=== PATIENT | male | born 1945 | race Caucasian/White ===

== ENCOUNTER 2022-05-22 05:24 | Emergency (ER) | payer OTHER ==
[~2022-05-22] VITALS: Ht 182.9 cm; Wt 69.8 kg
[~2022-05-22 05:24] MED LIST: ATEN50 PO; CALCAVITD PO; IBUP800 PO; LISI20 PO; LORA10ER PO
[2022-05-22 05:50] LABS: BASOPHILS ABSOLUTE AUTO 0.04 K/mm3 (0.00-0.23); BASOPHILS PERCENT AUTO 0 % (0-2); EOSINOPHILS PERCENT AUTO 1 % (0-6); Hematocrit 41.8 % (37.0-53.0); Hemoglobin 13.8 g/dL (13.5-17.5); IMMATURE GRAN ABSOLUTE AUTO 0.04 K/mm3 (0.00-0.10); IMMATURE GRAN PERCENT AUTO 0 % (0-1); LYMPHOCYTES ABSOLUTE AUTO 1.71 K/mm3 (0.84-5.20); LYMPHOCYTES PERCENT AUTO 18 % (21-46); MONOCYTES ABSOLUTE AUTO 1.52 K/mm3 (0.16-1.47); MONOCYTES PERCENT AUTO 16 % (4-13); Mean Corpuscular HGB 29.6 pg (26.0-34.0); Mean Corpuscular Volume 90 fL (80-100); Mean Platelet Volume 9.5 fL (9.1-12.4); NEUTROPHILS ABSOLUTE AUTO 6.09 K/mm3 (1.96-9.15); NEUTROPHILS PERCENT AUTO 64 % (41-73); Platelet Count 280 K/mm3 (150-400); RDW Coefficient Variation 12.9 % (11.7-14.2); RDW Standard Deviation 42.5 fL (35.1-46.3); Red Blood Cell Count 4.67 M/mm3 (4.30-5.90)
[2022-05-22 06:14] LABS: Albumin/Globulin Ratio 0.8 (0.8-1.8); Bilirubin, Total 0.6 mg/dL (0.1-1.0); Creatinine, Blood 0.62 mg/dL (0.60-1.20); Potassium, Blood 3.3 mmol/L (3.5-5.5)
[2022-05-22 06:37] LABS: Influenza A, PCR NEGATIVE (NEGATIVE); Influenza B, PCR NEGATIVE (NEGATIVE); Resp Syncytial Virus, PCR NEGATIVE (NEGATIVE); SARS-Cov-2 (COVID-19) PCR, MMC NEGATIVE (NEGATIVE)
[2022-05-22] MEDS ORDERED: PRED20 PO (09:28)
[2022-05-22] MEDS ORDERED: AZIT250 PO (09:28)
[2022-05-22] MEDS ORDERED: ALBU90OI INH (09:28)
[2022-05-23] MEDS ORDERED: ENAL10 PO (19:48)
[2022-05-23] MEDS ORDERED: METO50 PO (19:48)
== END 2022-05-22 10:07 | disposition home or self-care (01) ==
LOC: ER 05:24
PROVIDERS: Emergency Medicine
DX: J44.1 Chronic obstructive pulmonary disease with (acute) exacerbation (principal); E87.6 Hypokalemia; E83.42 Hypomagnesemia; Z20.822 Contact with and (suspected) exposure to COVID-19; I25.10 Atherosclerotic heart disease of native coronary artery without angina pectoris; I10 Essential (primary) hypertension; K21.9 Gastro-esophageal reflux disease without esophagitis; Z79.899 Other long term (current) drug therapy; Z88.6 Allergy status to analgesic agent; Z88.8 Allergy status to other drugs, medicaments and biological substances; Z91.018 Allergy to other foods
CPT/HCPCS: 0241U; 71045; 80053; 83735; 83880; 85025; 93005; 93010; 94640; 94664; 96361; 96365; 99284-25; A9270; J3475; J7030; J7512

== ENCOUNTER 2025-06-17 06:43 | Emergency (ER) | payer OTHER ==
[~2025-06-17] VITALS: Ht 182.9 cm; Wt 79.4 kg
[~2025-06-17 06:43] MED LIST changes: +ALBU90OI INH; +ATOR20 PO; +AZIT250 PO; +Aspir 8181 MG PO; +BISA5EC PO; +ENAL10 PO; +METO50 PO; +NITR.4SL SL; +PRED20 PO; +SENNA LAXATIVE8.6 MG PO
[2025-06-17 07:03] LABS: BASOPHILS ABSOLUTE AUTO 0.03 K/mm3 (0.00-0.23); BASOPHILS PERCENT AUTO 1 % (0-2); EOSINOPHILS ABSOLUTE AUTO 0.17 K/mm3 (0.00-0.68); EOSINOPHILS PERCENT AUTO 3 % (0-6); Hematocrit 38.1 % (37.0-53.0); Hemoglobin 13.0 g/dL (13.5-17.5); IMMATURE GRAN ABSOLUTE AUTO 0.01 K/mm3 (0.00-0.10); IMMATURE GRAN PERCENT AUTO 0 % (0-1); LYMPHOCYTES ABSOLUTE AUTO 1.63 K/mm3 (0.84-5.20); LYMPHOCYTES PERCENT AUTO 26 % (21-46); MONOCYTES ABSOLUTE AUTO 0.74 K/mm3 (0.16-1.47); MONOCYTES PERCENT AUTO 12 % (4-13); Mean Corpuscular HGB Conc 34.1 g/dL (31.5-36.5); Mean Corpuscular Volume 90 fL (80-100); NEUTROPHILS ABSOLUTE AUTO 3.78 K/mm3 (1.96-9.15); NEUTROPHILS PERCENT AUTO 59 % (41-73); NRBC ABSOLUTE 0.00 K/mm3 (0.00-0.02); NRBC Auto 0.0 /100 WBC (0.0-0.2); Platelet Count 157 K/mm3 (150-400); RDW Coefficient Variation 13.0 % (11.7-14.2); RDW Standard Deviation 43.1 fL (35.1-46.3)
[2025-06-17] MEDS ORDERED: Ipratropium/Albuterol SulF 2.5-0.5MG/3 ML Amp INH ONE (07:10)
[2025-06-17] MEDS ORDERED: NS 500 ML IV SCH (07:10)
[2025-06-17 07:23] LABS: Alanine Aminotransfer (ALT/SGP 19.0 U/L (12-78); Albumin, Blood 3.6 g/dL (3.4-5.0); Albumin/Globulin Ratio 1.1 (0.8-1.8); Anion Gap 9.0 mmol/L (3-11); Aspartate Aminotrans (AST/SGOT 29.0 U/L (12-37); Bilirubin, Total 0.6 mg/dL (0.1-1.0); Blood Urea Nitrogen 10.0 mg/dL (8-24); CO2, Blood 29.0 mmol/L (21-32); Calcium, Blood 9.5 mg/dL (8.5-10.1); Chloride, Blood 99.0 mmol/L (98-108); Creatinine, Blood 0.83 mg/dL (0.60-1.20); Globulin, Blood 3.3 g/dL (2.2-4.0); Glucose, Blood 107.0 mg/dL (70-99); Magnesium, Blood 1.4 mg/dL (1.6-2.4); Potassium, Blood 3.8 mmol/L (3.5-5.5); Sodium, Blood 133.0 mmol/L (136-145); Total Protein, Blood 6.9 g/dL (6.4-8.2)
[2025-06-17 07:33] LABS: pH Blood Venous 7.43 (7.34-7.37)
[2025-06-17 08:45] LABS: Source, Urine Clean Catch
[2025-06-17 08:49] LABS: Bilirubin, Urine Neg (Neg); Glucose Qualitative, Urine Neg (Neg); Ketones, Urine Neg (Neg); Leukocyte Esterase, Urine Neg (Neg); Protein, Urine Neg (Neg); Specific Gravity, Urine 1.015 (1.003-1.022); Urobilinogen, Urine NORM (Normal)
[2025-06-17 08:57] LABS: Color, Urine Pale Yellow (P-Yellow)
[2025-06-17] MEDS ORDERED: Magnesium Sulf 2 GM/Water 50ML 50 ML IV ONE (09:10)
[2025-06-17] MEDS ORDERED: CEPH500 PO (10:11)
[2025-06-17 10:30] VITALS: BP 145/52
== END 2025-06-17 10:50 | disposition home or self-care (01) ==
LOC: ER 06:43
PROVIDERS: Student in an Organized Health Care Education/Training Program
DX: I10 Essential (primary) hypertension (principal); E83.42 Hypomagnesemia; L03.032 Cellulitis of left toe; M19.90 Unspecified osteoarthritis, unspecified site; F43.10 Post-traumatic stress disorder, unspecified; K21.9 Gastro-esophageal reflux disease without esophagitis; J44.9 Chronic obstructive pulmonary disease, unspecified; Z79.82 Long term (current) use of aspirin; Z79.899 Other long term (current) drug therapy
CPT/HCPCS: 71046; 73660; 80053; 81003; 82140; 82803; 83735; 84484; 85025; 85651; 86140; 93005; 93010; 93926; 96374; 99284-25; A9270; J3475; J7030

== ENCOUNTER 2025-06-17 17:09 | Emergency (ER) | payer OTHER ==
[~2025-06-17] VITALS: Ht 182.9 cm; Wt 65.8 kg
[~2025-06-17 17:09] MED LIST changes: +CEPH500 PO
[2025-06-17 18:15] VITALS: BP 152/71
== END 2025-06-17 18:26 | disposition home or self-care (01) ==
LOC: ER 17:09
DX: I10 Essential (primary) hypertension (principal); M19.90 Unspecified osteoarthritis, unspecified site; F43.10 Post-traumatic stress disorder, unspecified; K21.9 Gastro-esophageal reflux disease without esophagitis; J44.9 Chronic obstructive pulmonary disease, unspecified; Z79.82 Long term (current) use of aspirin; Z79.899 Other long term (current) drug therapy; Z88.2 Allergy status to sulfonamides; Z88.8 Allergy status to other drugs, medicaments and biological substances
CPT/HCPCS: 99283; A9270

== ENCOUNTER 2025-06-18 15:57 | Emergency (ER) | payer OTHER ==
[~2025-06-18] VITALS: Ht 182.9 cm; Wt 65.8 kg
[2025-06-18 16:03] VITALS: BP 125/64
== END 2025-06-18 17:35 | disposition home or self-care (01) ==
LOC: ER 15:57
DX: L53.8 Other specified erythematous conditions (principal); I10 Essential (primary) hypertension; J44.9 Chronic obstructive pulmonary disease, unspecified; I25.10 Atherosclerotic heart disease of native coronary artery without angina pectoris; K21.9 Gastro-esophageal reflux disease without esophagitis; I25.2 Old myocardial infarction; Z95.5 Presence of coronary angioplasty implant and graft; Z95.820 Peripheral vascular angioplasty status with implants and grafts; Z88.6 Allergy status to analgesic agent; Z88.8 Allergy status to other drugs, medicaments and biological substances; Z91.048 Other nonmedicinal substance allergy status; Z79.82 Long term (current) use of aspirin; Z79.899 Other long term (current) drug therapy
CPT/HCPCS: 99284-25

== ENCOUNTER 2025-08-25 12:23 | Inpatient (IN) | payer OTHER ==
[~2025-08-25] VITALS: Ht 182.9 cm; Wt 62.9 kg
[2025-08-25 13:40] LABS: Alanine Aminotransfer (ALT/SGP 20.0 U/L (12-78); Albumin, Blood 3.7 g/dL (3.4-5.0); Albumin/Globulin Ratio 1.1 (0.8-1.8); Anion Gap 8.0 mmol/L (3-11); Aspartate Aminotrans (AST/SGOT 25.0 U/L (12-37); Bilirubin, Total 0.6 mg/dL (0.1-1.0); Blood Urea Nitrogen 16.0 mg/dL (8-24); CO2, Blood 26.0 mmol/L (21-32); Calcium, Blood 9.1 mg/dL (8.5-10.1); Chloride, Blood 104.0 mmol/L (98-108); Creatinine, Blood 0.96 mg/dL (0.60-1.20); Globulin, Blood 3.5 g/dL (2.2-4.0); Glucose, Blood 88.0 mg/dL (70-99); Potassium, Blood 4.4 mmol/L (3.5-5.5); Sodium, Blood 134.0 mmol/L (136-145); Total Protein, Blood 7.2 g/dL (6.4-8.2)
[2025-08-25 15:14] LABS: BASOPHILS ABSOLUTE AUTO 0.03 K/mm3 (0.00-0.23); BASOPHILS PERCENT AUTO 1 % (0-2); EOSINOPHILS ABSOLUTE AUTO 0.13 K/mm3 (0.00-0.68); EOSINOPHILS PERCENT AUTO 2 % (0-6); Hematocrit 30.7 % (37.0-53.0); Hemoglobin 10.0 g/dL (13.5-17.5); IMMATURE GRAN ABSOLUTE AUTO 0.01 K/mm3 (0.00-0.10); IMMATURE GRAN PERCENT AUTO 0 % (0-1); LYMPHOCYTES ABSOLUTE AUTO 1.16 K/mm3 (0.84-5.20); LYMPHOCYTES PERCENT AUTO 18 % (21-46); MONOCYTES ABSOLUTE AUTO 0.43 K/mm3 (0.16-1.47); MONOCYTES PERCENT AUTO 7 % (4-13); Mean Corpuscular HGB Conc 32.6 g/dL (31.5-36.5); Mean Corpuscular Volume 93 fL (80-100); NEUTROPHILS ABSOLUTE AUTO 4.56 K/mm3 (1.96-9.15); NEUTROPHILS PERCENT AUTO 72 % (41-73); NRBC ABSOLUTE 0.00 K/mm3 (0.00-0.02); NRBC Auto 0.0 /100 WBC (0.0-0.2); Platelet Count 140 K/mm3 (150-400); RDW Coefficient Variation 12.5 % (11.7-14.2); RDW Standard Deviation 42.7 fL (35.1-46.3)
[2025-08-25] MEDS ORDERED: CefTRIAXone Sodium 2,000 MG in NS 100 ML IV ONE (17:35)
[2025-08-25] MEDS ORDERED: Vancomycin HCL 2,000 MG in NS 520 ML IV ONE (17:40)
[2025-08-25] MEDS ORDERED: FLU VACC TS2025(65UP)/MF59C/PF 45 MCG/0.5 ML SYRINGE IM SCH (19:35)
[2025-08-25] MEDS ORDERED: NS 1,000 ML IV SCH (19:40)
[2025-08-25] MEDS ORDERED: Albuterol 2.5 MG/3 ML VIAL INH PRN (19:40)
[2025-08-25] MEDS ORDERED: Clindamycin 900mg in D5W 50ML 50 ML IV SCH ×2 (20:00→23:04)
[2025-08-25] MEDS ORDERED: Lactobacil 2-S.Thermo-Bifido 1 1 Cap PO SCH (21:00)
--- NOTE | 2025-08-25 22:09 | NUR ---
RECEIVED REPORT FROM COLEMAN DYSON IN THE ER. PT ON THEIR WAY TO MEDICAL FLOOR ROOM 310.
[2025-08-25 22:37] VITALS: BP 156/56
[2025-08-25] MEDS ORDERED: ENAL10 PO (23:30)
[2025-08-25] MEDS ORDERED: METO50 PO (23:31)
[2025-08-25] MEDS ORDERED: CAROSPIR25 MG/5 ML PO (23:32)
[2025-08-25] MEDS ORDERED: IBUP600 PO (23:33)
[2025-08-25] MEDS ORDERED: ATORVASTATIN CA10 MG PO (23:34)
[2025-08-25] MEDS ORDERED: B12 PO (23:35)
[2025-08-25] MEDS ORDERED: NS 250 ML IV PRN (23:40)
--- NOTE | 2025-08-26 02:47 | NUR ---
PT IS CURRENTLY SLEEPING. PT RECENTLY UP TO BRP WITH A SBA AND CANE USE. CALL LIGHT WITHIN REACH. BED IN LOW POSITION.
--- NOTE | 2025-08-26 03:32 | NUR ---
SHIFT SUMMARY CHIKIS IS A NEW ADMIT FOR DECREASED BLOOD FLOW TO LEFT FOOT. PT IS A&OX4. ABLE TO MAKE NEEDS KNOWN. EXTREMLY ANXIOUS, ESPECIALLY ABOUT HIS MEDICATION. PT PROVIDES THIS RN WITH LIST OF HOME MEDS AND IS VERY ADAMANT THAT DOSING/REGIMEN ARE FOLLOWED EXACTALY OR ELSE PT THREATENING TO LEAVE AMA. PT IS CONTINENT. SBA WITH HIS CANE TO THE BR. LAST BM WAS 08/25/25. LFA PIV, CURRENTLY HAS NS RUNNING AT 100ML/HR WELL INTERMITTENT ANTIBIOTICS. VERY HARD OF HEARING. ON 2L O2 WHICH IS ALSO HIS BASELINE AT HOME. PT HAS RED, FLAKY, AND EDEMATOUS SKIN TO HIS LLE. PT STATES THIS HAS BEEN PRESENT FOR A COUPLE MONTHS. REGULAR DIET. THE [facility] IN [place] IS WAITING TO DO SURGERY. PT HAS BEEN UNABLE TO GET TRANSPORTATION UP THERE PREVIOUSLY. THE PLAN IS FOR [place] TRANSPORT ON 08/26 (UNKNOWN TIME OF INDUCTION HEAT TREATER). MED REC HAS BEEN COMPLETE AND ALL MEDS IN MAR MATCH HOME MEDS. VSS. BED IN LOWEST POSITION. CALL LIGHT IN REACH.
[2025-08-26 07:42] VITALS: BP 105/74
[2025-08-26] MEDS ORDERED: B-121000 MC7 PO (08:27)
[2025-08-26] MEDS ORDERED: DOCU100 PO (08:29)
[2025-08-26] MEDS ORDERED: SPIR25 PO (08:31)
[2025-08-26] MEDS ORDERED: Enoxaparin 40 MG/0.4 ML SYR SC SCH (09:00)
[2025-08-26 11:31] VITALS: BP 146/60
[2025-08-26 15:50] VITALS: BP 143/58
--- NOTE | 2025-08-26 17:37 | NUR ---
1730 PT RETURNED TO ROOM VIA WHEELCHAIR WITH BELONGINGS THAT HE HAD TAKEN WITH HIM TO RADIOLOGY. PT DECLINED TO RETURN TO BED WHEN ASKED TO DO SO. PT DRESSED SELF IN OWN CLOTHINGS AND GOT SELF UP TO CHAIR. PT WITH UNSTEADY GAIT. REINSTRUCTED PATIENT TO USE CALL LIGHT AND CALL FOR ASSISTANCE PRIOR TO GETTING OOB. PT STATES "IM A STUBBORN OLD MAN AND BEEN DOING THINGS MY WAY FOR A LONG TIME" REINSTRUCTED PT TO CALL FOR ASSSIST PRIOR TO GETTING OOB TO PREVENT ANY POTENTIAL FALLS
[2025-08-26 19:49] VITALS: BP 145/61
--- NOTE | 2025-08-26 20:02 | NUR ---
SHIFT SUMMARY- PT CONTINUES TO TELL STAFF HE IS LEAVING NOW. HE HAD A CTA TODAY, WELL AN ARTERIAL STUDY. NO RESULTS AT THIS TIME. PT IS SITTING AT THE EOB TALKING WITH STAFF. BEDSIDE REPORT COMPLETED WITH THE NIGHT RN. PT DTR-IN-LAW IS AWARE OF THE CURRENT PLAN. NO S&S OF DISTRESS NOTED. PT STATES HE HAS NOT HAD TEETH SINCE 1980, OFFERED TO CHANGE THE DIET TO SOFT FOODS, THE PT DECLINED SAYING HE WILL GO HOME AND EAT AND COME BACK IN THE MORNING. THE PT IS AWARE THAT HE IS ABLE TO LEAVE AMA BUT UNTIL HE IS DISCHARGED HE SHOULD STAY HERE, HE CAN NOT LEAVE AND COME BACK. THE PT IS AWARE.
--- NOTE | 2025-08-27 02:26 | NUR ---
SHIFT SUMMARY PT A&OX4, COOPERATIVE WITH ROSA ELENA GREENBERG. PT REMAINS SLIGHTLY UNSTEADY ON FEET AND WILL NOT COMPLY WITH USING THE CALL LIGHT DESPITE EDUCATION ON FALL RISK. DIET MODIFIED TO EASY TO CHEW FOODS DUE TO PT NOT HAVING ANY TEETH. 2100 MEDS WERE TAKEN WITHOUT DIFFICULTY. USING URINAL APPROPRIATELY. PLAN IS FOR PODIATRY TO SEE PT IN THE MORNING. VSS. BED IN LOWEST POSITION. CALL LIGHT IN REACH.
[2025-08-27 07:39] VITALS: BP 148/66
--- NOTE | 2025-08-27 10:01 | NUR ---
DR HORTENSIA BAZAN HERE TO SEE PT.
--- NOTE | 2025-08-27 18:19 | NUR ---
NOTE PT ALERT. COOPERATIVE WITH CARE. NO THREATS TO LEAVE. EATING WELL. DR BAZAN HERE. IR DID NOT ROUND ON PT. VSS. UP SBA. GAIT WEAK UNSTEADY. FAMILY RELATED THAT PT HASN'T SHOWERED FOR 4 YEARS. HE LIVES IN A TRAILER ON THE BACK OF HER PROPERTY. HE IS ASTRAINGED FROM HIS CHILDERN D/T VOLITILE/AGGRESSIVE BEHAVIOR. CARE ONGOING.
[2025-08-27 18:36] VITALS: BP 141/59
[2025-08-27 20:07] VITALS: BP 150/73
--- NOTE | 2025-08-28 04:22 | NUR ---
SHIFT SUMMARY PT SLEPT MOST OF THE NIGHT. COOPERATIVE WITH CARES. GAIT REMAINS WEAK AND UNSTEADY. PT CONTINUES TO AMBULATE AROUND ROOM WITHOUT HIS CANE DESPITE EDUCATION. PLAN IS FOR IR TO EVALUATE TODAY. VSS. BED IN LOWEST POSITION. CALL LIGHT IN REACH.
[2025-08-28 05:16] VITALS: BP 134/64
[2025-08-28 07:32] VITALS: BP 145/59
--- NOTE | 2025-08-28 11:11 | NUR ---
RN NOTE: DAUGHTER IN LAW CALLED & GAVE HER AN UPDATE REGARDING CARE.
[2025-08-28] MEDS ORDERED: AMOCLA875 PO (14:56)
--- NOTE | 2025-08-28 15:49 | NUR ---
DISCHARGE NOTE: CALLED DAUGHTER IN [employer] TO [employer], GAVE PAPERWORK TO PATIENT & EXPLAINED NEW MEDICATION. LEFT IN WHEELCHAIR WITH DAUGHTER IN LAW JARET AND ALL BELONGINGS.
== END 2025-08-28 15:45 | disposition home or self-care (01) | DRG 603 ==
LOC: ER 12:23 → MEDS 19:02 → ERHOLD 19:02 → MEDS 22:34 → ENPENDDIS 08-28 14:22 → MEDS 08-28 15:45
PROVIDERS: Emergency Medicine; Physician Assistant; ADMIT Internal Medicine
DX: L03.116 Cellulitis of left lower limb (principal); L97.529 Non-pressure chronic ulcer of other part of left foot with unspecified severity; M19.90 Unspecified osteoarthritis, unspecified site; M06.9 Rheumatoid arthritis, unspecified; I25.10 Atherosclerotic heart disease of native coronary artery without angina pectoris; F43.10 Post-traumatic stress disorder, unspecified; I10 Essential (primary) hypertension; K21.9 Gastro-esophageal reflux disease without esophagitis; J44.9 Chronic obstructive pulmonary disease, unspecified; I73.9 Peripheral vascular disease, unspecified; Z79.82 Long term (current) use of aspirin; Z88.8 Allergy status to other drugs, medicaments and biological substances; Z99.81 Dependence on supplemental oxygen; I25.2 Old myocardial infarction; Z95.820 Peripheral vascular angioplasty status with implants and grafts; Z79.899 Other long term (current) drug therapy
CPT/HCPCS: 73630; 75635; 80053; 85025; 93926; 94760; 96365; 96366; 99284-25; A9270; J0696; J1650; J3373; J7030; J7040; J7050; Q9967